=== PATIENT | male | born 1975 | race Caucasian/White ===

== ENCOUNTER 2018-03-26 07:47 | Emergency (ER) | payer OTHER ==
[2018-03-26] MEDS ORDERED: Sodium Chloride 0.9% 1,000 ML ONE (08:04)
[2018-03-26 08:05] VITALS: TEMP 97.6
[2018-03-26] MEDS ORDERED: Sodium Chloride 0.9% 1,000 ML IV STA (08:19)
[2018-03-26] MEDS ORDERED: Lidocaine 116 MG in Sodium Chloride 0.9% 100 ML IV STA (08:19)
[2018-03-26 08:28] LABS: BASO % 0.3 % (0.0-2.0); EOS # 0.3 K/uL (0.0-0.7); EOS % 3.4 % (0.0-4.0); HEMOGLOBIN 13.9 g/dL (12.0-18.0); LYMPH # 1.3 K/uL (1.0-4.3); LYMPH % 15.5 % (20.0-40.0); MEAN CELL VOLUME 84.2 fL (80.0-94.0); MEAN CORPUSCULAR HEMOGLOBIN 28.5 pg (27.0-31.0); MEAN CORPUSCULAR HGB CONC 33.8 g/dL (33.0-37.0); MONO # 0.5 K/uL (0.0-0.8); MONO % 6.5 % (0.0-10.0); NEUT # 6.2 K/uL (1.8-7.0); NEUT % 74.3 % (50.0-75.0); NRBC % 0.1 % (0.0-2.0); RBC 4.87 Mil/uL (4.40-5.90); RED CELL DISTRIBUTION WIDTH 14.3 % (11.5-14.5); WHITE BLOOD COUNT 8.4 K/uL (4.8-10.8)
[2018-03-26 08:35] LABS: ALB/GLOB RATIO 1.5 (1.0-2.1); ALBUMIN 4.5 g/dL (3.5-5.0); ALT/SGPT 38 U/L (21-72); AST/SGOT 29 U/L (17-59); BLOOD UREA NITROGEN 16 mg/dL (9-20); GFR NON-AFRICAN AMERICAN > 60
[2018-03-26 08:39] VITALS: RESP 16
[2018-03-26 08:40] LABS: LIPASE 157 U/L (23-300)
[2018-03-26 09:42] VITALS: PULSE 76; O2SAT 99
[2018-03-26 09:52] LABS: URINE BILIRUBIN NEGATIVE (NEGATIVE); URINE BLOOD 1+ (NEGATIVE); URINE CLARITY Clear (Clear); URINE COLOR Straw (YELLOW); URINE GLUCOSE (UA) NORMAL (Normal); URINE LEUKOCYTE ESTERASE NEG Leu/uL (Negative); URINE PROTEIN NEGATIVE (NEGATIVE); URINE UROBILINOGEN NORMAL mg/dL (0.2-1.0)
--- NOTE | 2018-03-26 09:54 | C.PDOC ---
History Of Present Illness 42 years old male with PMHx of kidney stones presents to ED for complaints of left flank pain that began 3 hours ago. Patient describes pain radiates to LLQ and he reports symptoms are similar to prior kidney stone symptoms. Denies any other complaints. Chief Complaint (Nursing): Abdominal Pain History Per: Patient History/Exam Limitations: no limitations Onset/Duration Of Symptoms: Hrs Current Symptoms Are (Timing): Still Present Location Of Pain/Discomfort: LLQ Radiation Of Pain To:: Flank Associated Symptoms: denies: Fever, Chills, Nausea, Vomiting, Diarrhea Exacerbating Factors: None Alleviating Factors: None Last Bowel Movement: Today Recent travel outside of the [place]: No Past Medical History Reviewed: Historical Data, Nursing Documentation, Vital Signs Vital Signs: Last Vital Signs Temp 97.6 F 03/26/18 07:56 Pulse 76 03/26/18 09:41 Resp 16 03/26/18 09:41 BP 116/77 03/26/18 09:41 Pulse Ox 99 03/26/18 09:41 - Medical History PMH: Kidney Stones, Chronic Kidney Disease Surgical History: No Surg Hx Family History: States: No Known Family Hx - Social History Hx Alcohol Use: No Hx Substance Use: No - Immunization History Hx Tetanus Toxoid Vaccination: No Hx Influenza Vaccination: No Hx Pneumococcal Vaccination: No Review Of Systems Constitutional: Negative for: Fever, Chills Gastrointestinal: Positive for: Other (Flank Pain ). Negative for: Nausea, Vomiting, Abdominal Pain, Diarrhea Skin: Negative for: Rash Neurological: Negative for: Weakness, Numbness Physical Exam - Physical Exam Appears: Non-toxic, In Acute Distress (Painful distress ) Skin: Normal Color, Warm, Dry, No Rash Head: Atraumatic, Normacephalic Eye(s): bilateral: Normal Inspection, PERRL, EOMI Oral Mucosa: Moist Neck: Normal ROM, Supple Chest: Symmetrical, No Tenderness Cardiovascular: Rhythm Regular Respiratory: Normal Breath Sounds, No Rales, No Rhonchi, No Wheezing Gastrointestinal/Abdominal: Soft, No Tenderness Extremity: Normal ROM Extremity: Bilateral: Atraumatic, Normal Color And Temperature, Normal ROM Pulses: Left Radial: Normal, Right Radial: Normal Neurological/Psych: Oriented x3, Normal Speech Gait: Steady ED Course And Treatment - Laboratory Results Result Diagrams: 03/26/18 08:18 03/26/18 08:18 O2 Sat by Pulse Oximetry: 99 (RA) Pulse Ox Interpretation: Normal - CT Scan/US CT Abdomen&Pelvis Other Rad Studies (CT/US): Read By Radiologist, Radiology Report Reviewed CT/US Interpretation: PROCEDURE: CT Abdomen and Pelvis without Oral or IV contrast. HISTORY: left flank pain. COMPARISON: None available. TECHNIQUE: Contiguous axial images of the abdomen and pelvis. No oral or IV contrast administered. Coronal and Sagittal reformats generated and reviewed. Radiation dose: Total exam DLP = 714.98 mGy-cm. This CT exam was performed using one or more of the following dose reduction techniques: Automated exposure control, adjustment of the mA and/or kV according to patient size, and/or use of ite rative reconstruction technique. FINDINGS: There is limited evaluation of the solid organs without the administration of IV contrast. LOWER THORAX: No visible consolidation, pleural effusion, or pneumothorax. Punctate calcified granuloma, right lung base. LIVER: Unremarkable unenhanced appearance. GALLBLADDER AND BILE DUCTS: Unremarkable unenhanced appearance. PANCREAS: Unremarkable unenhanced appearance. SPLEEN: Unremarkable unenhanced appearance. ADRENALS: Unremarkable unenhanced appearance. KIDNEYS AND URETERS: 4 mm ureteral calculus at the left UVJ with proximal hydroureter nephrosis. Left-sided perinephric stranding/edema. No right-sided hydronephrosis or obstructing calculus identified. BLADDER: See above. REPRODUCTIVE: The prostate gland measures approximately 3.2 x 4.5 cm. APPENDIX: The appendix appears within normal limits of caliber. No secondary signs of acute appendicitis. BOWEL: The stomach is nondistended. Lack of oral contrast limits evaluation for bowel pathology. The bowel loops appear within normal limits of caliber without evidence of intestinal obstruction. PERITONEUM: No significant free fluid. No definite free air. LYMPH NODES: No bulky lymphadenopathy identified. VASCULATURE: No atherosclerotic calcification of the aorta. No aortic aneurysm. BONES: No acute osseous abnormality is detected. OTHER FINDINGS: Right-sided gynecomastia. IMPRESSION: 4 mm ureteral calculus at the left UVJ with proximal hydroureter nephrosis. Left- sided perinephric stranding/edema. Additional incidental findings as above. Progress Note: Administered IV Fluids, Lidocaine, and Toradol. Ordered blood work, CT Abdomen& Pelvis, Urine culture, and Urinalysis. On re-evaluation patient fels better, tolerates po and is stable to be d/c home with PMD and follow up. Disposition - Disposition Referrals: Shahnaz Spring MD [Staff Provider] - Disposition: HOME/ ROUTINE Disposition Time: 13:41 Condition: IMPROVED Additional Instructions: Follow up with Urologist within 1-2 days. Return to ED if feel worse. Instructions: Renal Colic (DC) Forms: [employer] ([place]) - Clinical Impression Clinical Impression: Renal colic on left side - PA / [employer] / Resident Statement MD/DO has reviewed & agrees with the documentation as recorded. - Scribe Statement The provider has reviewed the documentation as recorded by the Scribe Monserrat Jett All medical record entries made by the Edisonibanisha were at my direction and personally dictated by me. I have reviewed the chart and agree that the record accurately reflects my personal performance of the history, physical exam, medical decision making, and the department course for this patient. I have also personally directed, reviewed, and agree with the discharge instructions and disposition.
--- NOTE | 2018-03-26 10:47 | CT ---
PROCEDURE: CT Abdomen and Pelvis without Oral or IV contrast. HISTORY: left flank pain COMPARISON: None available TECHNIQUE: Contiguous axial images of the abdomen and pelvis. No oral or IV contrast administered. Coronal and Sagittal reformats generated and reviewed. Radiation dose: Total exam DLP = 714.98 mGy-cm. This CT exam was performed using one or more of the following dose reduction techniques: Automated exposure control, adjustment of the mA and/or kV according to patient size, and/or use of iterative reconstruction technique. FINDINGS: There is limited evaluation of the solid organs without the administration of IV contrast. LOWER THORAX: No visible consolidation, pleural effusion, or pneumothorax. Punctate calcified granuloma, right lung base. LIVER: Unremarkable unenhanced appearance. GALLBLADDER AND BILE DUCTS: Unremarkable unenhanced appearance. PANCREAS: Unremarkable unenhanced appearance. SPLEEN: Unremarkable unenhanced appearance. ADRENALS: Unremarkable unenhanced appearance. KIDNEYS AND URETERS: 4 mm ureteral calculus at the left UVJ with proximal hydroureter nephrosis. Left-sided perinephric stranding/edema. No right-sided hydronephrosis or obstructing calculus identified. BLADDER: See above. REPRODUCTIVE: The prostate gland measures approximately 3.2 x 4.5 cm. APPENDIX: The appendix appears within normal limits of caliber. No secondary signs of acute appendicitis. BOWEL: The stomach is nondistended. Lack of oral contrast limits evaluation for bowel pathology. The bowel loops appear within normal limits of caliber without evidence of intestinal obstruction. PERITONEUM: No significant free fluid. No definite free air. LYMPH NODES: No bulky lymphadenopathy identified. VASCULATURE: No atherosclerotic calcification of the aorta. No aortic aneurysm. BONES: No acute osseous abnormality is detected. OTHER FINDINGS: Right-sided gynecomastia. IMPRESSION: 4 mm ureteral calculus at the left UVJ with proximal hydroureter nephrosis. Left-sided perinephric stranding/edema. Additional incidental findings as above.
[2018-03-26 14:08] VITALS: BP 149/95
== END 2018-03-26 14:08 | disposition home or self-care (01) ==
LOC: C.ER 07:47
DX: N13.2 Hydronephrosis with renal and ureteral calculous obstruction (principal); Z87.442 Personal history of urinary calculi
CPT/HCPCS: 74176; 80053; 81001; 83690; 85025; 87086; 96361; 96374; 99285; J1885; J2001; J7030